=== PATIENT | male | born 1950 | race Caucasian/White ===

== ENCOUNTER 2017-07-31 18:55 | Emergency (ER) | payer BC, OTHER ==
[~2017-07-31] VITALS: Ht 182.9 cm; Wt 122.5 kg
[2017-07-31] MEDS ORDERED: LISINOPRIL 20MG20 MG PO (19:12)
[2017-07-31] MEDS ORDERED: MS CONTIN15 MG PO (19:13)
[2017-07-31] MEDS ORDERED: FLOMAX 0.4MG C0.4 MG PO (19:13)
[2017-07-31] MEDS ORDERED: LYRICA 100 MG100 MG PO (19:13)
--- OUTSIDE RECORDS SUMMARY | 2017-07-31 19:13 | External Medical Summary Rpt | CCD ---
Author Author KAYA Address Unknown Phone .[email or web address] Purpose Continuity of Care Document - through 2016
--- OUTSIDE RECORDS SUMMARY | 2017-07-31 19:13 | External Medical Summary Rpt | CCD ---
Author Author [facility] Organization [employer] Address Unknown Phone Unavailable Purpose Continuity of Care Document - through 2016
--- OUTSIDE RECORDS SUMMARY | 2017-07-31 19:13 | External Medical Summary Rpt | CCD ---
Author Author KAYA Address Unknown Phone [email or web address] Purpose Continuity of Care Document - through 2016
[2017-07-31] MEDS ORDERED: FOLIC ACID 1MG T1 MG PO (19:14)
--- OUTSIDE RECORDS SUMMARY | 2017-07-31 19:14 | External Medical Summary Rpt | CCD ---
Demographics Preferred Language Vietnamese Marital Status Unknown Denominational Affiliation Unknown Race Unknown Ethnic Group Unknown Author Author , KAYA RUCKER Address Unknown Phone Immunization No patient found.
--- OUTSIDE RECORDS SUMMARY | 2017-07-31 19:14 | External Medical Summary Rpt | CCD ---
Demographics Preferred Language Faroese Marital Status Unknown Nondenominational Affiliation Unknown Race Unknown Ethnic Group Unknown Author Author , KAYA RUCKER Address Unknown Phone Immunization No patient found.
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
[2017-07-31 20:50] VITALS: BP 156/93
== END 2017-07-31 20:54 | disposition home or self-care (01) ==
LOC: ER 18:55
DX: S16.1XXA Strain of muscle, fascia and tendon at neck level, initial encounter (principal); S39.012A Strain of muscle, fascia and tendon of lower back, initial encounter; S83.402A Sprain of unspecified collateral ligament of left knee, initial encounter; I10 Essential (primary) hypertension; K21.9 Gastro-esophageal reflux disease without esophagitis